=== PATIENT | male | born 1995 | race Caucasian/White ===

== ENCOUNTER 2025-02-22 18:46 | Emergency (ER) | payer OTHER ==
[~2025-02-22] VITALS: Ht 165.1 cm; Wt 63.6 kg
[2025-02-22 18:49] VITALS: TEMP 99.1
[2025-02-22] MEDS ORDERED: ASCO500 PO (18:51)
[2025-02-22] MEDS ORDERED: depression PO (18:51)
[2025-02-22 20:30] LABS: COVID AG,FIA SOURCE NASAL SWAB
[2025-02-22 21:09] LABS: SARS-COV2 (COVID) ANTIGEN,FIA Negative (Negative)
[2025-02-22 21:10] LABS: INFLUENZA TYPE A NEGATIVE FOR TYPE A (NEGATIVE); INFLUENZA TYPE B NEGATIVE FOR TYPE B (NEGATIVE)
[2025-02-22 21:37] VITALS: BP 134/88; PULSE 91; RESP 16; O2SAT 100
== END 2025-02-22 21:54 | disposition home or self-care (01) ==
LOC: EMS 18:50
DX: B34.9 Viral infection, unspecified (principal); Z20.822 Contact with and (suspected) exposure to COVID-19; Z79.899 Other long term (current) drug therapy
CPT/HCPCS: 87804; 99283